=== PATIENT | male | born 1995 | race African-American/Black ===

== ENCOUNTER 2022-08-01 13:06 | Emergency (ER) | payer MEDICAID ==
[~2022-08-01] VITALS: Ht 180.3 cm; Wt 89.0 kg
[2022-08-01] MEDS ORDERED: KETOROLAC 30MG/ML VIAL IM ONE (14:30)
[2022-08-01] MEDS ORDERED: KETOROLAC 30MG/ML VIAL IM NR (17:15)
[2022-08-01] MEDS ORDERED: IBUP-2029 MT (17:44)
[2022-08-01 18:14] VITALS: BP 127/86
== END 2022-08-01 18:16 | disposition home or self-care (01) ==
LOC: ER 13:06
DX: S93.402A Sprain of unspecified ligament of left ankle, initial encounter (principal); X50.1XXA Overexertion from prolonged static or awkward postures, initial encounter; Y93.89 Activity, other specified; Y92.89 Other specified places as the place of occurrence of the external cause; Y99.8 Other external cause status
CPT/HCPCS: 29515; 73560; 73590; 73610; 96372; 99284; J1885; Z7610